=== PATIENT | female | born 1955 ===

== ENCOUNTER → 2016-11-03 | Outpatient (CLI) | payer OTHER | LOC: FIMAGING 07:46 | PROVIDERS: ATTEND Family Medicine | DX: R10.84 Generalized abdominal pain (principal); R14.0 Abdominal distension (gaseous); K44.9 Diaphragmatic hernia without obstruction or gangrene; Z98.84 Bariatric surgery status ==

== ENCOUNTER 2018-01-02 00:27 | Emergency (ER) | payer OTHER ==
[2018-01-02] MEDS ORDERED: methylPREDNISolone SOD SUCC 125 MG/2 ML VIAL IVP ONE (00:47)
[2018-01-02] MEDS ORDERED: FAMOTIDINE 20 MG/2 ML SDV IVP ONE (00:47)
[2018-01-02 00:49] VITALS: BP 144/94
--- NOTE | 2018-01-02 00:59 | EDPHY ---
H & P Time Seen by Provider: 01/02/18 00:30 HPI/ROS: CC: rash HPI: This 62-year-old female with past medical history including arthritis presents to the emergency department today complaining of hives that started about 1 week ago. They started on her lower back and have been quite pruritic. It has now extended to her chest, arms, and scalp. She thinks it might have something to do with an injury she had to her lower extremity on September 26. She moved a large plastic tote and gouged a piece of skin out of the inner aspect of her right lower leg near the ankle. She has been treating it herself because her insurance did not kick in until the of this month. It has gotten better with just localized wound care including Neosporin, Aveeno and a topical hydrocortisone cream. Currently she is only using the Neosporin on the wound. She has been taking Benadryl for the rash for the last 3 days but is not helping much. She is not feeling short of breath and she can swallow fine but her throat does feel "congested". She denies dizziness, chest pain, or abdominal pain. She has not been taking any other new medications but she does take meloxicam and tramadol for her arthritis. No other new exposures. She had an allergic reaction 3 years ago to Echinacea for which she got an allergy shot. No other allergies known. She has an appointment with her primary care provider in about 4 days. REVIEW OF SYSTEMS: Constitutional: No fever, no chills. Eyes: No discharge. ENT: No sore throat. See HPI. Respiratory: No cough, no shortness of breath. Cardiac: No chest pain, no palpitations. Gastrointestinal: No abdominal pain, no vomiting. Genitourinary: No hematuria. Musculoskeletal: No back pain. Skin: See HPI. Neurological: No headache. Past Medical/Surgical History: PMH: Arthritis, small hiatal hernia PSH: Gastric Bypass, Cholecystectomy, Appendectomy, C-Sections x 2 FH: Father - "nervous condition"; Mother - Old age/infection Allergy to Echinacea Medications: Tramadol, Meloxicam, topical Neosporin Social: Tobacco 1/2 pack per week; no ETOH; no THC50 or other drugs PCP: Dr. Desiree Ovalle Smoking Status: Light smoker Physical Exam: General Appearance: Alert, moderate distress (pruritis). Eyes: Pupils equal and round no pallor or injection. ENT, Mouth: Mucous membranes are moist. No pharyngeal erythema or exudate. No swelling. Uvula midline. Airway patent. Respiratory: There are no retractions, lungs are clear to auscultation. No rales, rhonchi, or wheezing. Cardiovascular: Regular rate and rhythm. No murmurs, gallops, or rubs. Gastrointestinal: Abdomen is soft and nontender, no masses, bowel sounds normal. Neurological: Awake and alert, sensory and motor exams grossly normal. Skin: Warm and dry, urticarial rash on trunk and arms. There is an approx 3 x 4 cm well healing wound on the inner aspect of the right ankle with mild surrounding erythema without red streaks. No drainage. Musculoskeletal: Neck is supple and nontender. Extremities are symmetrical, full range of motion. Psychiatric: Patient is oriented X 3, there is no agitation. DIFFERENTIAL DIAGNOSIS: After history and physical exam differential diagnosis was considered for but not limited to: [allergic reaction, urticaria, leg wound , cellulitis] Constitutional: Initial Vital Signs Temperature (C) 98.2 F 01/02/18 00:40 Heart Rate 92 01/02/18 00:40 Respiratory Rate 18 01/02/18 00:40 Blood Pressure 144/94 H 01/02/18 00:40 O2 Sat (%) 96 01/02/18 00:40 O2 Delivery Mode Room Air Allergies/Adverse Reactions: Echinacea Allergy (Intermediate, Verified 01/02/18 00:42) Hives Home Medications: Medication Instructions Recorded Meloxicam 01/02/18 Tramadol HCl 01/02/18 predniSONE 20 mg PO BID #14 tablet 01/02/18 Medical Decision Making ED Course/Re-evaluation: The patient was seen and examined. Vital signs reviewed. Prior records reviewed. Patient seems to relate her current symptoms of urticaria to the leg wound she sustained on September 26. She could possibly be having an allergic reaction to the topical Neosporin. No definite causative substance identified. In any case, her airway is patent, vital signs are stable, and the reaction seems to be limited to her skin. She took Benadryl approximately 2 hr ago. She did drive herself here. We started an IV and gave her 125 mg of Solu- Medrol IV push as well as 20 mg of Pepcid IV push. She was instructed to continue the [id number] Benadryl or Zyrtec as directed as well as over-the -counter Pepcid or Tagamet. She was given a prescription for prednisone 20 mg twice a day for the next 7 days. She has an appointment with her primary care provider in 4 days. She was advised to return to the emergency department if symptoms change or worsen as discussed. - Data Points Medications Given: Discontinued Medications Famotidine (Pepcid) 20 mg IVP EDNOW ONE Stop: 01/02/18 00:48 Last Admin: 01/02/18 01:00 Dose: 20 mg Methylprednisolone Sodium Succinate (Solu-Medrol) 125 mg IVP EDNOW ONE Stop: 01/02/18 00:48 Last Admin: 01/02/18 01:00 Dose: 125 mg Departure - Departure Disposition: Home, Routine, Self-Care Clinical Impression: Urticaria Condition: Good Instructions: Urticaria (ED) Additional Instructions: Take the Prednisone as directed. Continue either the BENADRYL (also called diphenhydramine) 25 mg every 4-6 hours for the itching/rash or Zyrtec ( also known as Cetirizine) 10mg once a day (do not take both) for the itching and rash. Add [id number] Pepcid or Tagamet as directed which will work in conjunction with the Benadryl or Zyrtec to decrease the itching/rash. Follow up with your doctor on as scheduled and discuss your allergic reaction as well as the wound on your ankle. You may need to see an language arts teacher in the future . Return to the ER if difficulty swallowing or breathing, dizziness, or any other concerns. Referrals: Desiree Ovalle MD [Medical Doctor] - 01/05/18 10:15 am Prescriptions: predniSONE 20 mg PO BID #14 tablet
[2018-01-02] MEDS ORDERED: methylPREDNISolone SOD SUCC 125 MG/2 ML VIAL ONE (01:08)
== END 2018-01-02 01:24 | disposition home or self-care (01) ==
LOC: CED 00:27
DX: L50.9 Urticaria, unspecified (principal); F17.200 Nicotine dependence, unspecified, uncomplicated
CPT/HCPCS: 96374; J2930